=== PATIENT | female | born 1940 | race Caucasian/White ===

== ENCOUNTER 2018-03-03 11:40 | Inpatient (IN) | payer MEDICARE, BC ==
[~2018-03-03] VITALS: Ht 172.7 cm; Wt 86.2 kg
--- NOTE | ~2018-03-03 | CN ---
PATIENT NAME:ALLISON PINEDO MEDICAL RECORD: [id number] : 36 LOCATION:[facility] ADMIT DATE: 03/03/18 ACCOUNT: [id number] CONSULTING PHYSICIAN: PURVI DEL REAL MD REFERRING PHYSICIAN: BRINDA ANDERSEN MD DATE OF CONSULTATION: 03/08/2018 HISTORY OF PRESENT ILLNESS: The patient is 77 years old and she was admitted to the hospital on March 03. The patient has multiple medical problems. She had had an acute onset of confusion and was admitted because she was both confused and weak. She was febrile and continues to be febrile. She is hypernatremic. She has had an imaging study showing global atrophy, white matter changes, and a depressed skull fracture of uncertain age. She is febrile today and ran a temperature of 102 degrees Fahrenheit yesterday. Her white count is increasing and her creatinine is improving, although she still is hypernatremic. She has a history of hemochromatosis. She apparently has a history of dementia and has stage III chronic kidney disease. She is anemic and dysphagic. She apparently has a Gram-positive bacteremia secondary to a port infection. ASSESSMENT: Delirium. PLAN: I would recommend Geodon at a dose of 10 mg IM to treat behavior problems or agitated behaviors. Since the patient is currently sedated that probably would not be necessary. It is not possible for me to assess her mental status while she is acutely delirious and acutely medically ill. Please consult me if there are behavior changes that need to be addressed for her management and safety of the staff or other patients. It is not possible for me to give an underlying opinion about her baseline mental status given her current medical condition. TRANSINT:[id number] Voice Confirmation ID: [id number] DOCUMENT ID: [id number] PURVI DEL REAL MD at 1329 CC: [id number] DICTATION DATE: 03/08/18 1347 VETERINARY INSPECTOR: 03/08/18 1403 ADM IN [place] [id number] [place] [address]
--- NOTE | ~2018-03-03 | EC ---
PATIENT:ALLISON PINEDO DATE OF SERVICE: 03/03/18 SEX: F MEDICAL RECORD: [id number] DATE OF : 36 LOCATION:[facility] AGE OF PATIENT: 77 ADMISSION DATE: 03/03/18 REFERRING PHYSICIAN: INTERPRETING PHYSICIAN: CHAUNCEY VELEZ MD ECHOCARDIOGRAM REPORT ECHO CHARGES 4 ECHO COMPLETE Date: 03/07/18 CLINICAL DIAGNOSIS: ENDOCARDITIS ECHOCARDIOGRAPHIC MEASUREMENTS (adult normal given) AC root (d.<3.7cm) 2.8 cm LV Septum d (<1.2 cm> 1.2 cm Valve Excursion 1.1 cm LV Septum (systole) 1.2 cm Left Atria (s.<4.0cm> 3.7 cm LVPW d(<1.2cm) 0.9 cm RV (d.<2.3cm) 2.5 cm LVPW (sytole) 1.2 cm LV diastole(<5.6CM) 4.2 cm MV E-F(>70mm/sec) cm LV systole 3.4 cm LVOT Diameter 1.3 cm MV exc.(>10mm) cm Est.ejection fraction (50-75%) % DOPPLER: LVIT cm/sec A 85 cm/sec E 94 cm/sec LA cm/sec RVSP 40.2 mmHg LVOT 107 cm/sec AOP1/2T m/s Asc. Ao 280 cm/sec RVOT 93 cm/sec RA cm/sec PA 104 cm/sec AV Gradient Peak 31.4 mmHg AV Mean 22.2 mmHg AV Area 0.9 cm MV Gradient Peak 8.2 mmHg MV Mean 4.3 mmHg MV Area cm COMMENTS: Machine Presser: Berta [facility] Filler Wiper: 3 Dr. Villasenor TAPE# PACS Pericardial Effusion N DATE OF SERVICE: Adequate 2D, color flow, spectral Doppler, and M-mode. No LVH. LV internal dimension is normal. Wall motion is normal. EF is greater than or equal to 55%. Aortic valve is tricuspid. No evidence of stenosis on Doppler interrogation. Left atrium is normal at 3.7 cm. Mitral valve shows no prolapse. Trace MR. Right-sided chambers grossly normal. Trace TR. TRANSINT:[id number] Voice Confirmation ID: [id number] DOCUMENT ID: [id number] ECHOCARDIOGRAM REPORT [id number] ALLISON PNIEDO CHAUNCEY VELEZ MD at 0843 CC: [id number] DICTATION DATE: 03/08/18915 DRESSER TENDER: 03/08/18 1036 ADM IN [place] [id number] [place] [id number]
[2018-03-03 12:15] VITALS: BP 122/48; BMI 28.9
[2018-03-03] MEDS ORDERED: CELEXA10 MG PO (12:43)
[2018-03-03] MEDS ORDERED: ALDACTONE50 MG PO (12:43)
[2018-03-03] MEDS ORDERED: PROCRIT/EP40000 UNIT SQ (12:44)
[2018-03-03] MEDS ORDERED: NYSTATIN1 PWD TOPICAL (12:45)
[2018-03-03] MEDS ORDERED: ATIVAN0.5 MG PO (12:46)
[2018-03-03] MEDS ORDERED: METFORMIN HCL500 M1 (12:46)
[2018-03-03] MEDS ORDERED: HYDROCODON-ACE1 EAC7 PO (12:47)
[2018-03-03 13:01] LABS: HEMATOCRIT 23.9 % (36.0-48.0); MCH 28.6 pg (26.0-34.0); MCHC 33.5 g/dL (31.0-37.0); MCV 85.4 fL (80.0-100.0); MEAN PLATELET VOLUME 11.8 fL (7.4-10.4); RDW 16.2 % (11.5-14.5); WBC 2.7 10x3/uL (4.8-10.8)
[2018-03-03 13:27] LABS: ALBUMIN 2.8 g/dL (3.4-5.0); ANION GAP 15.8 mmol/L (8-16); BILIRUBIN - TOTAL 0.65 mg/dL (0.2-1.3); CALCIUM 8.6 mg/dL (8.5-10.1); CARBON DIOXIDE 18.7 mmol/L (21.0-32.0); CREATININE - SERUM 2.1 mg/dL (0.6-1.3); POTASSIUM - SERUM 5.5 mmol/L (3.5-5.1); PROTEIN - SERUM 6.3 g/dL (6.4-8.2); THYROID STIMULATING HORMONE 2.97 uIU/mL (0.36-3.74)
[2018-03-03 13:45] LABS: PLATELET COUNT 49 10x3/uL (130-400)
[2018-03-03 14:10] LABS: LYMPHOCYTES 20 % (15-50); MONOCYTES 18 % (2-11); NEUTROPHILS 56 % (40-80); PLATELET ESTIMATE DECREASED
[2018-03-03 14:11] LABS: ANISOCYTOSIS OCC; ROULEAUX 1+
[2018-03-03 15:27] LABS: APPEARANCE CLEAR (CLEAR); BILIRUBIN NEGATIVE (NEGATIVE); COLOR YELLOW (YELLOW); GLUCOSE NEGATIVE (NEGATIVE); KETONE NEGATIVE (NEGATIVE); NITRITE NEGATIVE (NEGATIVE); PROTEIN NEGATIVE (NEGATIVE); UROBILINOGEN NORMAL (NORMAL)
[2018-03-03 15:33] LABS: EPITHELIAL CELLS 0-5 /hpf (0-5); WHITE CELLS - URINE 0-5 /hpf (0-5)
[2018-03-03 15:35] LABS: BACTERIA FEW /hpf (NONE SEEN)
[2018-03-03 17:36] VITALS: BP 145/55
[2018-03-03 20:00] VITALS: BP 154/67
[2018-03-04] VITALS (7 sets, daily range): BP systolic 108–148; BP diastolic 46–64; BMI 28.8
[2018-03-04 06:03] LABS: BASOPHILS 0 % (0-2); EOSINOPHILS 0 % (0-7); HEMATOCRIT 20.7 % (36.0-48.0); IMMATURE GRANULOCYTES 1.2 % (0-5); LYMPHOCYTES 16.6 % (15-50); MCH 27.9 pg (26.0-34.0); MCHC 33.3 g/dL (31.0-37.0); MCV 83.8 fL (80.0-100.0); MONOCYTES 16.6 % (2-11); NEUTROPHILS 65.6 % (40-80); PLATELET COUNT 58 10x3/uL (130-400); RBC 2.47 10x6/uL (4.00-5.40); RDW 16.3 % (11.5-14.5)
[2018-03-04 06:17] LABS: ALBUMIN 2.4 g/dL (3.4-5.0); ANION GAP 19.9 mmol/L (8-16); BILIRUBIN - TOTAL 0.57 mg/dL (0.2-1.3); CALCIUM 8.7 mg/dL (8.5-10.1); CARBON DIOXIDE 18.2 mmol/L (21.0-32.0); CREATININE - SERUM 2.1 mg/dL (0.6-1.3); POTASSIUM - SERUM 5.1 mmol/L (3.5-5.1); PROTEIN - SERUM 6.1 g/dL (6.4-8.2)
[2018-03-04 06:32] LABS: WBC 3.4 10x3/uL (4.8-10.8)
[2018-03-04 06:33] LABS: HEMOGLOBIN 6.9 g/dL (12-16)
[2018-03-04] MEDS ORDERED: JADENU PO (15:14)
[2018-03-05 04:00] VITALS: BP 107/42
[2018-03-05 08:05] LABS: HEMATOCRIT 24.4 % (36.0-48.0); LYMPHOCYTES 19.8 % (15-50); MCH 29.2 pg (26.0-34.0); MCHC 34.8 g/dL (31.0-37.0); MCV 83.8 fL (80.0-100.0); MEAN PLATELET VOLUME 12.3 fL (7.4-10.4); NEUTROPHILS 68.7 % (40-80); PLATELET COUNT 56 10x3/uL (130-400); RBC 2.91 10x6/uL (4.00-5.40); RDW 16.9 % (11.5-14.5)
[2018-03-05 08:06] LABS: HEMOGLOBIN 8.5 g/dL (12-16)
[2018-03-05 08:16] LABS: ALBUMIN 2.2 g/dL (3.4-5.0); ANION GAP 17.1 mmol/L (8-16); BILIRUBIN - TOTAL 0.64 mg/dL (0.2-1.3); CALCIUM 8.5 mg/dL (8.5-10.1); POTASSIUM - SERUM 5.1 mmol/L (3.5-5.1); PROTEIN - SERUM 6.1 g/dL (6.4-8.2)
[2018-03-05 08:34] VITALS: BP 121/49
[2018-03-05 13:01] VITALS: BP 129/55
[2018-03-05 16:40] VITALS: BP 117/57
[2018-03-05 20:00] VITALS: BP 133/52
[2018-03-06] VITALS: BP 115/48
[2018-03-06 04:00] VITALS: BP 121/49
[2018-03-06 05:14] LABS: BASOPHILS 0.2 % (0-2); EOSINOPHILS 0.7 % (0-7); HEMATOCRIT 24.6 % (36.0-48.0); HEMOGLOBIN 8.3 g/dL (12-16); IMMATURE GRANULOCYTES 5.2 % (0-5); LYMPHOCYTES 15.8 % (15-50); MCH 28.2 pg (26.0-34.0); MCHC 33.7 g/dL (31.0-37.0); MCV 83.7 fL (80.0-100.0); MEAN PLATELET VOLUME 12.2 fL (7.4-10.4); MONOCYTES 13.2 % (2-11); NEUTROPHILS 64.9 % (40-80); PLATELET COUNT 66 10x3/uL (130-400); RBC 2.94 10x6/uL (4.00-5.40); RDW 16.3 % (11.5-14.5); WBC 4.3 10x3/uL (4.8-10.8)
[2018-03-06 05:35] LABS: ALBUMIN 2.1 g/dL (3.4-5.0); ANION GAP 15.2 mmol/L (8-16); BILIRUBIN - TOTAL 0.51 mg/dL (0.2-1.3); CALCIUM 8.4 mg/dL (8.5-10.1); CARBON DIOXIDE 18.7 mmol/L (21.0-32.0); POTASSIUM - SERUM 4.9 mmol/L (3.5-5.1); PROTEIN - SERUM 5.9 g/dL (6.4-8.2)
[2018-03-06 11:41] VITALS: BP 107/56
[2018-03-06 17:12] VITALS: BP 119/56
[2018-03-06 20:00] VITALS: BP 126/47
[2018-03-06 23:43] VITALS: BP 120/77
[2018-03-07 04:00] VITALS: BP 112/59
[2018-03-07 05:05] LABS: BASOPHILS 0.2 % (0-2); EOSINOPHILS 0.9 % (0-7); HEMATOCRIT 25.6 % (36.0-48.0); HEMOGLOBIN 8.6 g/dL (12-16); IMMATURE GRANULOCYTES 9.4 % (0-5); LYMPHOCYTES 15.5 % (15-50); MCH 28.4 pg (26.0-34.0); MCHC 33.6 g/dL (31.0-37.0); MCV 84.5 fL (80.0-100.0); MEAN PLATELET VOLUME 12.5 fL (7.4-10.4); MONOCYTES 12.2 % (2-11); NEUTROPHILS 61.8 % (40-80); PLATELET COUNT 74 10x3/uL (130-400); RBC 3.03 10x6/uL (4.00-5.40); RDW 16.5 % (11.5-14.5); WBC 4.6 10x3/uL (4.8-10.8)
[2018-03-07 05:34] LABS: ALBUMIN 2.1 g/dL (3.4-5.0); ANION GAP 19.5 mmol/L (8-16); BILIRUBIN - TOTAL 0.66 mg/dL (0.2-1.3); CALCIUM 8.2 mg/dL (8.5-10.1); CARBON DIOXIDE 15.8 mmol/L (21.0-32.0); CREATININE - SERUM 1.9 mg/dL (0.6-1.3); POTASSIUM - SERUM 5.3 mmol/L (3.5-5.1); PROTEIN - SERUM 5.5 g/dL (6.4-8.2)
[2018-03-07 08:36] VITALS: Ht 172.7 cm; Wt 86.2 kg
[2018-03-07 10:10] VITALS: BP 143/63
[2018-03-07 15:04] VITALS: BP 123/43
[2018-03-07 20:23] VITALS: BP 123/50
[2018-03-08 03:35] VITALS: BP 142/60
[2018-03-08 04:12] LABS: BASOPHILS 0.2 % (0-2); EOSINOPHILS 0.8 % (0-7); HEMATOCRIT 24.7 % (36.0-48.0); HEMOGLOBIN 8.1 g/dL (12-16); IMMATURE GRANULOCYTES 9.4 % (0-5); LYMPHOCYTES 17.3 % (15-50); MCH 27.9 pg (26.0-34.0); MCHC 32.8 g/dL (31.0-37.0); MCV 85.2 fL (80.0-100.0); MEAN PLATELET VOLUME 11.6 fL (7.4-10.4); MONOCYTES 11.3 % (2-11); PLATELET COUNT 66 10x3/uL (130-400); RDW 16.5 % (11.5-14.5); WBC 5.3 10x3/uL (4.8-10.8)
[2018-03-08 04:26] LABS: ALBUMIN 1.9 g/dL (3.4-5.0); ANION GAP 19.2 mmol/L (8-16); BILIRUBIN - TOTAL 0.61 mg/dL (0.2-1.3); CALCIUM 8.2 mg/dL (8.5-10.1); CARBON DIOXIDE 17.7 mmol/L (21.0-32.0); CREATININE - SERUM 1.8 mg/dL (0.6-1.3); POTASSIUM - SERUM 4.9 mmol/L (3.5-5.1); PROTEIN - SERUM 5.7 g/dL (6.4-8.2)
[2018-03-08 08:20] VITALS: BP 139/57
[2018-03-08 11:53] VITALS: BP 152/53
[2018-03-08 16:20] VITALS: BP 155/54
[2018-03-08 22:04] VITALS: BP 148/54
[2018-03-09 03:47] VITALS: BP 145/57
[2018-03-09 04:52] LABS: BASOPHILS 0.2 % (0-2); EOSINOPHILS 0.4 % (0-7); HEMOGLOBIN 8.3 g/dL (12-16); IMMATURE GRANULOCYTES 7.8 % (0-5); LYMPHOCYTES 9.6 % (15-50); MCH 28.6 pg (26.0-34.0); MCHC 33.2 g/dL (31.0-37.0); MCV 86.2 fL (80.0-100.0); MEAN PLATELET VOLUME 11.6 fL (7.4-10.4); MONOCYTES 7.2 % (2-11); NEUTROPHILS 74.8 % (40-80); PLATELET COUNT 57 10x3/uL (130-400); RDW 16.4 % (11.5-14.5)
[2018-03-09 05:07] LABS: ALBUMIN 1.9 g/dL (3.4-5.0); BILIRUBIN - TOTAL 0.82 mg/dL (0.2-1.3); CALCIUM 8.2 mg/dL (8.5-10.1); CARBON DIOXIDE 17.2 mmol/L (21.0-32.0); CREATININE - SERUM 1.8 mg/dL (0.6-1.3); POTASSIUM - SERUM 4.4 mmol/L (3.5-5.1); PROTEIN - SERUM 5.7 g/dL (6.4-8.2)
[2018-03-09 05:33] LABS: ANION GAP 18.2 mmol/L (8-16)
[2018-03-09 08:03] VITALS: BP 113/42
[2018-03-09 11:59] VITALS: BP 141/53
[2018-03-09 21:31] VITALS: BP 133/56
[2018-03-10 04:40] LABS: BASOPHILS 0.2 % (0-2); EOSINOPHILS 0.5 % (0-7); HEMATOCRIT 23.1 % (36.0-48.0); HEMOGLOBIN 7.6 g/dL (12-16); LYMPHOCYTES 18.5 % (15-50); MCH 28.6 pg (26.0-34.0); MCHC 32.9 g/dL (31.0-37.0); MCV 86.8 fL (80.0-100.0); MEAN PLATELET VOLUME 12.5 fL (7.4-10.4); MONOCYTES 10.5 % (2-11); NEUTROPHILS 66.3 % (40-80); RBC 2.66 10x6/uL (4.00-5.40); RDW 16.6 % (11.5-14.5); WBC 4.3 10x3/uL (4.8-10.8)
[2018-03-10 05:03] LABS: ANION GAP 14.3 mmol/L (8-16); CALCIUM 8.1 mg/dL (8.5-10.1); CARBON DIOXIDE 18.1 mmol/L (21.0-32.0); CREATININE - SERUM 1.8 mg/dL (0.6-1.3); POTASSIUM - SERUM 4.4 mmol/L (3.5-5.1)
[2018-03-10 05:13] VITALS: BP 154/64
[2018-03-10 05:19] LABS: PLATELET COUNT 59 10x3/uL (130-400)
[2018-03-10 08:20] VITALS: BP 103/57
[2018-03-10 11:51] VITALS: BP 110/64
[2018-03-10 15:52] VITALS: BP 106/51
[2018-03-10 20:52] VITALS: BP 101/61
[2018-03-11 04:22] VITALS: BP 124/64
[2018-03-11 04:27] LABS: CALCIUM 7.7 mg/dL (8.5-10.1); CARBON DIOXIDE 19.3 mmol/L (21.0-32.0); CREATININE - SERUM 1.7 mg/dL (0.6-1.3); POTASSIUM - SERUM 4.3 mmol/L (3.5-5.1)
[2018-03-11 04:43] LABS: BASOPHILS 0 % (0-2); EOSINOPHILS 0.8 % (0-7); HEMOGLOBIN 7.6 g/dL (12-16); IMMATURE GRANULOCYTES 5.3 % (0-5); LYMPHOCYTES 12.7 % (15-50); MCH 28.5 pg (26.0-34.0); MCV 86.1 fL (80.0-100.0); MONOCYTES 8.1 % (2-11); NEUTROPHILS 73.1 % (40-80); RBC 2.67 10x6/uL (4.00-5.40); RDW 16.8 % (11.5-14.5); WBC 6.1 10x3/uL (4.8-10.8)
[2018-03-11 04:46] LABS: PLATELET COUNT 43 10x3/uL (130-400)
[2018-03-11 08:48] VITALS: BP 119/46
[2018-03-11 12:45] VITALS: BP 128/57
[2018-03-11 16:57] VITALS: BP 128/78
[2018-03-11 20:00] VITALS: BP 134/50
[2018-03-12 05:02] VITALS: BP 154/74
[2018-03-12 05:21] LABS: BASOPHILS 0.2 % (0-2); EOSINOPHILS 0.5 % (0-7); HEMATOCRIT 23.2 % (36.0-48.0); HEMOGLOBIN 7.6 g/dL (12-16); IMMATURE GRANULOCYTES 4.8 % (0-5); LYMPHOCYTES 12.1 % (15-50); MCH 28.3 pg (26.0-34.0); MCHC 32.8 g/dL (31.0-37.0); MCV 86.2 fL (80.0-100.0); MEAN PLATELET VOLUME 12.3 fL (7.4-10.4); MONOCYTES 7.3 % (2-11); NEUTROPHILS 75.1 % (40-80); RBC 2.69 10x6/uL (4.00-5.40); RDW 16.6 % (11.5-14.5); WBC 5.6 10x3/uL (4.8-10.8)
[2018-03-12 05:30] LABS: PLATELET COUNT 41 10x3/uL (130-400)
[2018-03-12 05:52] LABS: ANION GAP 16.3 mmol/L (8-16); CALCIUM 7.9 mg/dL (8.5-10.1); CARBON DIOXIDE 16.9 mmol/L (21.0-32.0); CREATININE - SERUM 1.6 mg/dL (0.6-1.3); POTASSIUM - SERUM 4.2 mmol/L (3.5-5.1)
[2018-03-12 08:54] VITALS: BP 97/44
[2018-03-12 13:08] VITALS: BP 120/51
[2018-03-12 16:28] VITALS: BP 130/46
[2018-03-12 20:00] VITALS: BP 117/54
[2018-03-13] VITALS: BP 123/45
[2018-03-13 04:00] VITALS: BP 129/40
[2018-03-13 05:47] LABS: BASOPHILS 0.2 % (0-2); EOSINOPHILS 0.5 % (0-7); HEMATOCRIT 21.3 % (36.0-48.0); IMMATURE GRANULOCYTES 5.2 % (0-5); LYMPHOCYTES 13.9 % (15-50); MCH 28.4 pg (26.0-34.0); MCHC 33.3 g/dL (31.0-37.0); MCV 85.2 fL (80.0-100.0); MEAN PLATELET VOLUME 12.2 fL (7.4-10.4); MONOCYTES 7.2 % (2-11); RDW 16.2 % (11.5-14.5)
[2018-03-13 05:50] LABS: HEMOGLOBIN 7.1 g/dL (12-16); PLATELET COUNT 33 10x3/uL (130-400)
[2018-03-13 06:07] LABS: ANION GAP 15.5 mmol/L (8-16); CALCIUM 7.6 mg/dL (8.5-10.1); CARBON DIOXIDE 17.4 mmol/L (21.0-32.0); CREATININE - SERUM 1.6 mg/dL (0.6-1.3); POTASSIUM - SERUM 3.9 mmol/L (3.5-5.1); VANCOMYCIN - RANDOM 19.5 ug/mL (10.0-20.0)
[2018-03-13 08:33] VITALS: BP 136/59
[2018-03-13 12:31] VITALS: BP 126/52
[2018-03-13 16:11] VITALS: BP 113/39
[2018-03-13 20:00] VITALS: BP 134/52
[2018-03-14 04:00] VITALS: BP 125/43
[2018-03-14 08:28] VITALS: BP 113/40
[2018-03-14 08:33] LABS: BASOPHILS 0.2 % (0-2); EOSINOPHILS 0.2 % (0-7); HEMATOCRIT 23.7 % (36.0-48.0); HEMOGLOBIN 7.8 g/dL (12-16); LYMPHOCYTES 13.9 % (15-50); MCH 28.4 pg (26.0-34.0); MCHC 32.9 g/dL (31.0-37.0); MCV 86.2 fL (80.0-100.0); MONOCYTES 6.8 % (2-11); NEUTROPHILS 75.9 % (40-80); RBC 2.75 10x6/uL (4.00-5.40); RDW 16.2 % (11.5-14.5); WBC 5.6 10x3/uL (4.8-10.8)
[2018-03-14 08:39] LABS: PLATELET COUNT 34 10x3/uL (130-400)
[2018-03-14 08:49] LABS: CALCIUM 7.8 mg/dL (8.5-10.1); CARBON DIOXIDE 18.6 mmol/L (21.0-32.0); CREATININE - SERUM 1.4 mg/dL (0.6-1.3); POTASSIUM - SERUM 4.6 mmol/L (3.5-5.1); VANCOMYCIN - RANDOM 15.1 ug/mL (10.0-20.0)
[2018-03-14 11:31] VITALS: BP 130/54
[2018-03-14 16:29] VITALS: BP 120/37
[2018-03-14 21:07] VITALS: BP 121/50
[2018-03-15] VITALS (7 sets, daily range): BP systolic 111–132; BP diastolic 34–74
[2018-03-15 04:25] LABS: BASOPHILS 0 % (0-2); EOSINOPHILS 0.5 % (0-7); IMMATURE GRANULOCYTES 1.7 % (0-5); LYMPHOCYTES 14.2 % (15-50); MCHC 34.7 g/dL (31.0-37.0); NEUTROPHILS 75.6 % (40-80); RBC 2.31 10x6/uL (4.00-5.40); RDW 15.7 % (11.5-14.5)
[2018-03-15 04:35] LABS: HEMATOCRIT 19.3 % (36.0-48.0); HEMOGLOBIN 6.7 g/dL (12-16); MCV 83.5 fL (80.0-100.0)
[2018-03-15 04:36] LABS: PLATELET COUNT 30 10x3/uL (130-400)
[2018-03-15 04:41] LABS: ANION GAP 17.8 mmol/L (8-16); CALCIUM 7.3 mg/dL (8.5-10.1); CARBON DIOXIDE 17.6 mmol/L (21.0-32.0); CREATININE - SERUM 1.3 mg/dL (0.6-1.3); POTASSIUM - SERUM 4.4 mmol/L (3.5-5.1); VANCOMYCIN - RANDOM 11.4 ug/mL (10.0-20.0)
[2018-03-16 07:54] LABS: BASOPHILS 0 % (0-2); EOSINOPHILS 0.5 % (0-7); HEMATOCRIT 22.6 % (36.0-48.0); IMMATURE GRANULOCYTES 1.5 % (0-5); LYMPHOCYTES 12.8 % (15-50); MCH 28.4 pg (26.0-34.0); MCHC 33.2 g/dL (31.0-37.0); MONOCYTES 10.2 % (2-11); RBC 2.64 10x6/uL (4.00-5.40); RDW 15.5 % (11.5-14.5); WBC 3.9 10x3/uL (4.8-10.8)
[2018-03-16 07:56] LABS: MCV 85.6 fL (80.0-100.0)
[2018-03-16 07:58] LABS: HEMOGLOBIN 7.5 g/dL (12-16)
[2018-03-16 08:01] LABS: PLATELET COUNT 25 10x3/uL (130-400)
[2018-03-16 08:09] LABS: ALBUMIN 1.6 g/dL (3.4-5.0); BILIRUBIN - TOTAL 0.47 mg/dL (0.2-1.3); CALCIUM 7.5 mg/dL (8.5-10.1); CARBON DIOXIDE 17.4 mmol/L (21.0-32.0); CREATININE - SERUM 1.4 mg/dL (0.6-1.3); POTASSIUM - SERUM 4.4 mmol/L (3.5-5.1); PROTEIN - SERUM 4.6 g/dL (6.4-8.2)
[2018-03-16 09:19] VITALS: BP 115/44
[2018-03-16 09:38] VITALS: BP 115/44
[2018-03-16 13:27] VITALS: BP 119/48
[2018-03-16 17:44] VITALS: BP 122/51
[2018-03-16 21:10] VITALS: BP 148/64
[2018-03-17 04:29] LABS: BASOPHILS 0 % (0-2); EOSINOPHILS 0.3 % (0-7); IMMATURE GRANULOCYTES 1.3 % (0-5); LYMPHOCYTES 16.4 % (15-50); MCH 28.8 pg (26.0-34.0); MCHC 34.3 g/dL (31.0-37.0); MCV 83.9 fL (80.0-100.0); MONOCYTES 8.2 % (2-11); NEUTROPHILS 73.8 % (40-80); RBC 2.36 10x6/uL (4.00-5.40); RDW 15.4 % (11.5-14.5)
[2018-03-17 04:45] LABS: ALBUMIN 1.4 g/dL (3.4-5.0); ANION GAP 15.4 mmol/L (8-16); BILIRUBIN - TOTAL 0.41 mg/dL (0.2-1.3); CALCIUM 7.6 mg/dL (8.5-10.1); CARBON DIOXIDE 18.1 mmol/L (21.0-32.0); CREATININE - SERUM 1.3 mg/dL (0.6-1.3); POTASSIUM - SERUM 4.5 mmol/L (3.5-5.1); PROTEIN - SERUM 4.6 g/dL (6.4-8.2); VANCOMYCIN - RANDOM 6.4 ug/mL (10.0-20.0)
[2018-03-17 05:10] LABS: HEMATOCRIT 19.8 % (36.0-48.0); HEMOGLOBIN 6.8 g/dL (12-16); PLATELET COUNT 21 10x3/uL (130-400)
[2018-03-17 08:48] VITALS: BP 108/50
[2018-03-17 12:10] VITALS: BP 102/53
[2018-03-17 16:57] VITALS: BP 125/55
[2018-03-17 21:11] VITALS: BP 126/46
[2018-03-18 06:26] VITALS: BP 139/56
[2018-03-18 06:39] LABS: BASOPHILS 0 % (0-2); EOSINOPHILS 0.2 % (0-7); IMMATURE GRANULOCYTES 1.8 % (0-5); LYMPHOCYTES 11.3 % (15-50); MCH 29.2 pg (26.0-34.0); MCHC 34.2 g/dL (31.0-37.0); MCV 85.3 fL (80.0-100.0); MONOCYTES 8.8 % (2-11); NEUTROPHILS 77.9 % (40-80); RDW 15.1 % (11.5-14.5)
[2018-03-18 06:48] LABS: HEMATOCRIT 27.2 % (36.0-48.0); HEMOGLOBIN 9.3 g/dL (12-16); RBC 3.19 10x6/uL (4.00-5.40); WBC 4.3 10x3/uL (4.8-10.8)
[2018-03-18 06:51] LABS: PLATELET COUNT 24 10x3/uL (130-400)
[2018-03-18 07:35] LABS: ALBUMIN 1.5 g/dL (3.4-5.0); ANION GAP 16.9 mmol/L (8-16); BILIRUBIN - TOTAL 0.56 mg/dL (0.2-1.3); CALCIUM 7.6 mg/dL (8.5-10.1); CARBON DIOXIDE 16.6 mmol/L (21.0-32.0); CREATININE - SERUM 1.3 mg/dL (0.6-1.3); POTASSIUM - SERUM 4.5 mmol/L (3.5-5.1); PROTEIN - SERUM 4.5 g/dL (6.4-8.2)
[2018-03-18 08:45] VITALS: BP 113/48
[2018-03-18 12:44] VITALS: BP 102/49
[2018-03-18 16:46] VITALS: BP 106/55
[2018-03-18 23:12] VITALS: BP 117/49
[2018-03-19 04:20] LABS: BASOPHILS 0 % (0-2); EOSINOPHILS 0.2 % (0-7); HEMATOCRIT 25.9 % (36.0-48.0); HEMOGLOBIN 8.9 g/dL (12-16); IMMATURE GRANULOCYTES 3.1 % (0-5); LYMPHOCYTES 11.9 % (15-50); MCH 29.1 pg (26.0-34.0); MCHC 34.4 g/dL (31.0-37.0); MCV 84.6 fL (80.0-100.0); MONOCYTES 9.6 % (2-11); NEUTROPHILS 75.2 % (40-80); RBC 3.06 10x6/uL (4.00-5.40); RDW 15.3 % (11.5-14.5); WBC 4.5 10x3/uL (4.8-10.8)
[2018-03-19 04:22] LABS: PLATELET COUNT 23 10x3/uL (130-400)
[2018-03-19 04:39] LABS: ALBUMIN 1.5 g/dL (3.4-5.0); ANION GAP 14.8 mmol/L (8-16); BILIRUBIN - TOTAL 0.56 mg/dL (0.2-1.3); CARBON DIOXIDE 17.7 mmol/L (21.0-32.0); CREATININE - SERUM 1.4 mg/dL (0.6-1.3); POTASSIUM - SERUM 4.5 mmol/L (3.5-5.1); PROTEIN - SERUM 4.7 g/dL (6.4-8.2)
[2018-03-19 04:44] VITALS: BP 119/41
[2018-03-19 08:36] VITALS: BP 124/46
[2018-03-19 12:07] VITALS: BP 142/67
[2018-03-19 22:28] VITALS: BP 118/53
[2018-03-20 04:59] VITALS: BP 115/49
[2018-03-20 05:21] LABS: BASOPHILS 0.2 % (0-2); EOSINOPHILS 0.4 % (0-7); HEMATOCRIT 27.7 % (36.0-48.0); HEMOGLOBIN 9.5 g/dL (12-16); IMMATURE GRANULOCYTES 4.7 % (0-5); MCH 29.1 pg (26.0-34.0); MCHC 34.3 g/dL (31.0-37.0); MEAN PLATELET VOLUME 13.6 fL (7.4-10.4); MONOCYTES 9.8 % (2-11); NEUTROPHILS 72.9 % (40-80); RBC 3.26 10x6/uL (4.00-5.40); RDW 15.4 % (11.5-14.5); WBC 5.1 10x3/uL (4.8-10.8)
[2018-03-20 05:28] LABS: PLATELET COUNT 32 10x3/uL (130-400)
[2018-03-20 05:43] LABS: ALBUMIN 1.6 g/dL (3.4-5.0); ANION GAP 14.2 mmol/L (8-16); BILIRUBIN - TOTAL 0.7 mg/dL (0.2-1.3); CALCIUM 8.2 mg/dL (8.5-10.1); CARBON DIOXIDE 18.6 mmol/L (21.0-32.0); CREATININE - SERUM 1.4 mg/dL (0.6-1.3); POTASSIUM - SERUM 4.8 mmol/L (3.5-5.1)
[2018-03-20 07:03] VITALS: BP 144/57
[2018-03-20 16:14] VITALS: BP 98/48
[2018-03-20 20:27] VITALS: BP 105/61
[2018-03-21 01:03] VITALS: BP 124/64
[2018-03-21 06:11] LABS: BASOPHILS 0 % (0-2); EOSINOPHILS 0.2 % (0-7); HEMATOCRIT 24.7 % (36.0-48.0); HEMOGLOBIN 8.7 g/dL (12-16); IMMATURE GRANULOCYTES 3.5 % (0-5); LYMPHOCYTES 12.1 % (15-50); MCH 29.7 pg (26.0-34.0); MCHC 35.2 g/dL (31.0-37.0); MCV 84.3 fL (80.0-100.0); MONOCYTES 10.9 % (2-11); NEUTROPHILS 73.3 % (40-80); RBC 2.93 10x6/uL (4.00-5.40); RDW 15.6 % (11.5-14.5); WBC 4.2 10x3/uL (4.8-10.8)
[2018-03-21 06:29] LABS: PLATELET COUNT 30 10x3/uL (130-400)
[2018-03-21 06:53] LABS: ALBUMIN 1.5 g/dL (3.4-5.0); ANION GAP 14.1 mmol/L (8-16); BILIRUBIN - TOTAL 1.01 mg/dL (0.2-1.3); CARBON DIOXIDE 17.7 mmol/L (21.0-32.0); CREATININE - SERUM 1.4 mg/dL (0.6-1.3); POTASSIUM - SERUM 4.8 mmol/L (3.5-5.1); PROTEIN - SERUM 4.8 g/dL (6.4-8.2)
[2018-03-21 09:41] VITALS: BP 94/61
[2018-03-21 20:05] VITALS: BP 123/62
[2018-03-22 04:56] LABS: BASOPHILS 0.2 % (0-2); EOSINOPHILS 0.2 % (0-7); HEMATOCRIT 25.6 % (36.0-48.0); HEMOGLOBIN 8.8 g/dL (12-16); IMMATURE GRANULOCYTES 6.6 % (0-5); LYMPHOCYTES 9.3 % (15-50); MCH 29.1 pg (26.0-34.0); MCHC 34.4 g/dL (31.0-37.0); MCV 84.8 fL (80.0-100.0); MONOCYTES 8.7 % (2-11); RBC 3.02 10x6/uL (4.00-5.40); RDW 15.9 % (11.5-14.5)
[2018-03-22 05:08] LABS: PLATELET COUNT 30 10x3/uL (130-400)
[2018-03-22 05:13] LABS: ALBUMIN 1.6 g/dL (3.4-5.0); ANION GAP 15.5 mmol/L (8-16); BILIRUBIN - TOTAL 0.94 mg/dL (0.2-1.3); CALCIUM 8.1 mg/dL (8.5-10.1); CARBON DIOXIDE 17.5 mmol/L (21.0-32.0); CREATININE - SERUM 1.6 mg/dL (0.6-1.3); PROTEIN - SERUM 4.9 g/dL (6.4-8.2)
[2018-03-22 08:02] VITALS: BP 113/54
[2018-03-22] MEDS ORDERED: CELEXA20 MG PO (12:03)
[2018-03-22 12:43] VITALS: BP 117/50
== END 2018-03-22 15:03 | DRG 314 ==
LOC: D.MS 11:40
PROVIDERS: Family Medicine; Internal Medicine Nephrology; Student in an Organized Health Care Education/Training Program
PROC: 05HB33Z Insertion of Infusion Device into Right Basilic Vein, Percutaneous Approach (ICD-10-PCS; principal; 2018-03-16)
PROC: B54MZZA Ultrasonography of Right Upper Extremity Veins, Guidance (ICD-10-PCS; 2018-03-16)
DX: T80.211A Bloodstream infection due to central venous catheter, initial encounter (principal); A41.1 Sepsis due to other specified staphylococcus; R65.20 Severe sepsis without septic shock; G92 Toxic encephalopathy; N17.9 Acute kidney failure, unspecified; N39.0 Urinary tract infection, site not specified; E87.0 Hyperosmolality and hypernatremia; E83.111 Hemochromatosis due to repeated red blood cell transfusions; Z66 Do not resuscitate; R55 Syncope and collapse; D46.4 Refractory anemia, unspecified; B95.7 Other staphylococcus as the cause of diseases classified elsewhere; R13.10 Dysphagia, unspecified; T17.918A Gastric contents in respiratory tract, part unspecified causing other injury, initial encounter; N18.3 Chronic kidney disease, stage 3 (moderate); F03.90 Unspecified dementia, unspecified severity, without behavioral disturbance, psychotic disturbance, mood disturbance, and anxiety; D69.6 Thrombocytopenia, unspecified